=== PATIENT | male | born 1940 | race Caucasian/White ===

== ENCOUNTER 2017-07-29 07:59 | Outpatient (CLI) | payer MEDICARE, OTHER ==
[~2017-07-29] VITALS: Ht 172.7 cm; Wt 68.2 kg
--- NOTE | ~2017-07-29 | OP ---
PATIENT NAME: MALATHI NEWMAN MEDICAL RECORD: [id number] :38 LOCATION:D.CAT ADMISSION DATE: SURGEON: CAROL ANN CORONA MD DATE OF OPERATION: 07/29/2017 PROCEDURES: 1. PTCA stent left circumflex, ramus intermedius. 2. Left heart catheterization. 3. Selective coronary angiography. 4. Left ventriculogram. INDICATION: Angina and coronary artery disease. PROCEDURE IN DETAIL: After informed consent was obtained and after a detailed explanation of the risks, benefits as well as alternative therapies, the patient elected to proceed with angiogram and angioplasty. The right radial area was prepped and draped in normal sterile fashion. Right radial artery was cannulated via modified Seldinger technique with placement of 6-Kyrgyz sheath. All catheters exchanged through this sheath. FINDINGS: Left ventriculogram was performed in standard 30-degree CAMACHO view reveals good cardiac wall motion throughout all segments. Overall ejection fraction estimated at 60%. SELECTIVE CORONARY ANGIOGRAPHY: 1. Left main showed no significant angiographic disease. 2. Left anterior descending has multiple previously placed stents. These are widely patent with no significant restenosis. No disease elsewise throughout the LAD or its branches. 3. Left circumflex is very large, dominant. There is a large ramus intermedius and has 80% stenosis at the ostium. 4. Right coronary artery is small, nondominant. PTCA STENT OF THE RAMUS INTERMEDIUS: The stent used is a 3.5 x 8 mm Tyson. Result was 0% residual stenosis. OVERALL IMPRESSION: Successful percutaneous transluminal coronary angioplasty stent of the left circumflex, ramus intermedius going from 80% initial stenosis to 0% residual. TRANSINT:[id number] Voice Confirmation ID: [id number] DOCUMENT ID: [id number] CAROL ANN CORONA MD at 1140 CC: [id number] DICTATION DATE: 07/29/17 0934 DAIRY NUTRITION SPECIALIST: 07/29/17 1004 [facility] CLI 07/29/[address] [address]
--- NOTE | ~2017-07-29 | HEMODYNAMI ---
PATIENT:MALATHI NEWMAN MEDICAL RECORD: [id number] : 38 LOCATION:[facility] ADMISSION DATE: 07/29/17 Generatedon:07/29/20179:30 Patient name: MALATHI NEWMAN Patient #: [id number] SSN: DO B: 1940 Date of study: 07/29/2017 Page: Of Hemodynamic Procedure Report Patient Data Patient Demographics Procedure consent was obtained First Name: MALATHI Gender: Male Last Name: TRENT : 1940 Middle Initial: HIREN Age: 76 year(s) Patient #: [id number] Race: Unknown Additional ID: [id number] Contact details [address]: [address] [place] [address] State: [place] City: [place] Zip code: [address] Past Medical History Allergies: No known allergies Admission Admission Data Admission Date: 07/29/2017 Admission Time: 7:59 Admit Source: Other Lab Results Lab Result Date: 07/29/2017 Lab Result Time: 8:25 Biochemistry Name Units Result Min Max BUN mg/dl 17 --(---*)-- 7 18 Creatinine mg/dl 1.3 --(---*)-- 0.6 1.3 CBC Name Units Result Min Max Hematocrit % 41.4 -*(----)-- 42 54 Hemoglobin g/dl 14 --(*---)-- 13.5 17.5 Procedure Procedure Types Cath Procedure Diagnostic Procedure C [facility] w/Coronaries PCI Procedure Coronary Stent Coronary Stent Initial Procedure Description Procedure Date Procedure Date: 07/29/2017 Procedure Start Time: 9:17 Procedure End Time: 9:29 Procedure Staff Name Function Zander Lucero MD Performing Physician Pradip Jay RT Monitor Owen Mccormick RT Scrub Geo Yates RN Nurse Procedure Data Cath Procedure Fluoroscopy Diagnostic fluoroscopy Total fluoroscopy Time: 2.3 time: 2.3 min min Diagnostic fluoroscopy Total fluoroscopy dose: dose: 132.09 mGy 132.09 mGy Contrast Material Contrast Material Type Amount (ml) Isovue 300 90 Entry Location Entry Primary Successful Side Size Upsize Upsize Entry Closure Pimentel ccessful Closure Location (Fr) 1 (Fr) 2 (Fr) Remarks Device Remarks Radial Right 6 Fr Mechanical artery Short Compression Estimated blood loss: 10 ml Diagnostic catheters Device Type Used For End Catheter Placement DIAGNOSTIC [place] 110cm 5 Procedure Fr catheter ([id number]) Procedure Complications No complications Procedure Medications Medication Administration Route Dosage Oxygen NC 2 l/min Heparin Flush Bag added to field 2 bags (1000units/500ml NS) 0.9% NaCl I.V. 100 ml/hr Radial Cocktail added to field 1 syringe (Verapomil 2mg/Nitro 400mcg/Heparin 1500units) Fentanyl I.V. 50 mcg Versed I.V. 1 mg Fentanyl I.V. 50 mcg Versed I.V. 1 mg Radial Cocktail I.A. 1 syringe (Verapomil 2mg/Nitro 400mcg/Heparin 1500units) Heparin Bolus I.V. 4000 units Hemodynamics Rest Heart Rate: 63 (bpm) Snapshots Pre Cath Intra NCS Post Cath Vital Signs Time Heart Resp SPO2 etCO2 NIBP (mmHg) Rhythm Pain Sedation Rate (ipm) (%) (mmHg) Status Level (bpm) 9:03:06 63 16 96 0 146/78(109) NSR 0 (11) 10(A) , No pain 9:07:24 63 15 97 0 147/89(130) NSR 0 (11) 10(A) , No pain 9:11:40 65 16 96 0 139/83(127) NSR 0 (11) 10(A) , No pain 9:15:58 59 16 98 33.5 134/82(99) NSR 0 (11) 9(A) , No pain 9:20:10 67 16 96 35 111/69(92) NSR 0 (11) 9(A) , No pain 9:24:22 66 17 94 37.2 121/67(98) NSR 0 (11) 9(A) , No pain 9:28:36 62 16 96 32 124/72(95) NSR 0 (11) 9(A) , No pain Medications Time Medication Route Dose Verified Delivered Reason Notes Effectiveness by by 9:09:41 Oxygen NC 2 l/min Zander Guardado Per physician Jazmine Yates RN 9:09:50 Heparin Flush added 2 bags Zander Guardado used for Bag to Jazmine Yates RN procedure (1000units/500ml field NS) 9:09:58 0.9% NaCl I.V. 100 Zander Guardado Per physician ml/hr Jazmine Yates RN 9:10:08 Radial Cocktail added 1 Zander Guardado used for (Verapomil to syringe Jazmine Yates RN procedure 2mg/Nitro field 400mcg/Heparin 1500units) 9:14:31 Fentanyl I.V. 50 mcg Zander Guardado for sedation Jazmine Yates RN 9:14:37 Versed I.V. 1 mg Zander Guardado for sedation Jazmine Yates RN 9:16:20 Fentanyl I.V. 50 mcg Zander Guardado for sedation Jazmine Yates RN 9:16:25 Versed I.V. 1 mg Zander Guardado for sedation Jazmine Yates RN 9:17:50 Radial Cocktail I.A. 1 Zander Fermin for (Verapomil syringe Jazmine Lucero MD vasodilation 2mg/Nitro 400mcg/Heparin 1500units) 9:23:42 Heparin Bolus I.V. 4000 Zander Guardado for units Jazmine Yates RN anticoagulation Procedure Log Time Note 8:23:26 Informed consent obtained and on chart 8:23:31 Admit Source: Other 8:25:09 Diagnostic Cath status Elective 8:25:10 Time tracking: Regular hours 8:25:14 Plan of Care:Hemodynamics will remain stable., Cardiac rhythm will remain stable., Comfort level will be maintained., Respiratory function will remain adequate., Patient/ family verbilizes understanding of procedure., Procedure tolerated without complication., Recovers from procedure without complications.. 8:25:48 H&P Date Dictated: 07/21/2017 Within 30 days and on chart., H&P Addendum completed by physician on day of procedure. (MUST COMPLETE FOR ALL OUTPATIENTS). 8:40:14 Owen EATON(R) sent for patient. Start room use. 8:53:47 Patient received from Pre/Post Procedure Room to [facility] 3 Alert and oriented. Tansferred to table in Supine position. 8:53:48 Warm blankets applied, and andrzej hugger turned on for patient comfort. 8:53:48 Correct patient and procedure confirmed by team. 8:53:49 ECG and BP/O2 sat monitors applied to patient. 8:53:50 Pre-procedure instructions explained to patient. 8:53:51 Pre-op teaching completed and patient verbalized understanding. 8:53:52 Family in waiting room. 8:53:53 Patient NPO since Midnight. 8:53:59 Patient allergic to No known allergies 8:54:01 Is the patient allergic to Iodine/contrast media? No. 9:01:57 Vital chart was started 9:09:41 Oxygen 2 l/min NC was administered by Geo Yates RN; Per physician; 9:09:50 Heparin Flush Bag (1000units/500ml NS) 2 bags added to field was administered by Geo Yates RN; used for procedure; 9:09:58 0.9% NaCl 100 ml/hr I.V. was administered by Geo Yates RN; Per physician; 9:10:05 Baseline sample Acquired. 9:10:08 Radial Cocktail (Verapomil 2mg/Nitro 400mcg/Heparin 1500units) 1 syringe added to field was administered by Geo Yates RN; used for procedure; 9:10:08 Rhythm: sinus rhythm 9:10:09 Full Disclosure recording started 9:10:13 Is patient on blood thinner?Yes 9:10:15 ACC The patient was administered the following blood thiners within the last 24 hours: ACCPlavix 9:10:17 Patient diabetic? No. 9:10:19 Previous problem with sedation/anesthesia? No ? 9:10:20 Snore? Yes 9:10:21 Sleep apnea? No 9:10:21 Deviated septum? No 9:10:22 Opens mouth fully? Yes 9:10:23 Sticks out tongue? Yes 9:10:24 Airway obstruction? No ? 9:10:26 Dentures? Yes out 9:10:29 Modified Salty's test Ulnar < 7 seconds 9:10:30 Patient pain scale 0/10 ?. 9:10:41 IV patent on arrival in left wrist with 0.9% NaCl at [facility]. 9:12:22 Lab Result : Creatinine 1.3 mg/dl 9:12:22 Lab Result : BUN 17 mg/dl 9:12:22 Lab Result : Hemoglobin 14 g/dl 9:: Lab Result : Hematocrit 41.4 % 9:12:25 Lab results completed and on chart. 9:12:27 Right Radial & Right Groin area was prepped with chlora-prep and draped in sterile fashion 9:: Alarms reviewed by R. N. 9:12:28 Sharps counted by scrub and verified by R.N. 9:12:29 Use device set Radial Dx or PCI 9:12:30 ACIST Syringe (76535) opened to sterile field. 9:12:31 Medline Cath Pack ([id number]) opened to sterile field. 9:12:31 Bag Decanter (2002S) opened to sterile field. 9:12:33 ACIST Hand Control (99882) opened to sterile field. 9:12:33 ACIST Manifold (45350) opened to sterile field. 9:12:34 Tegaderm 4 x 4 (1626W) opened to sterile field. 9:12:37 SHEATH 6FR Slender ([id number]) opened to sterile field. 9:12:38 DIAGNOSTIC WIRE .035 260cm J wire (756285) opened to sterile field. 9:12:57 Physician arrived 9:12:58 --------ALL STOP TIME OUT------ 9:12:58 Final Timeout: patient, procedure, and site verified with staff and physician. All members of the team are in agreement. 9:13:14 Right Radial & Right Groin site verified by team. 9:13:19 Physical assessment completed. ASA score P 2 - A patient with mild systemic disease as per Zander Lucero MD. 9:13:23 Sedation plan: IV Moderate Sedation Medication:Versed, Fentanyl 9:14:31 Fentanyl 50 mcg I.V. was administered by Geo Yates RN; for sedation; 9:14:37 Versed 1 mg I.V. was administered by Geo Yates RN; for sedation; 9:16:20 Fentanyl 50 mcg I.V. was administered by Geo Yates RN; for sedation; 9:16:25 Versed 1 mg I.V. was administered by Geo Yates RN; for sedation; 9:16:42 Zero performed for pressure channel P1 9:17:07 Zero performed for pressure channel P1 9:17:18 Procedure started. 9:17:22 Local anesthetic to right radial artery with Lidocaine 2% by Zander Lucero MD.INITIAL ACCESS ONLY 9:17:31 A 6 Fr Short sheath was inserted into the Right Radial artery 9:17:49 A DIAGNOSTIC [place] 110cm 5 Fr catheter ([id number]) was advanced over the wire and used for Procedure. 9:17:50 Radial Cocktail (Verapomil 2mg/Nitro 400mcg/Heparin 1500units) 1 syringe I.A. was administered by Zander Lucero MD; for vasodilation; 9:18:32 LV gram done using CAMACHO 9:18:34 Injector settings: Ml/sec: 5, Volume: 15, 9:18:55 EF : 55 % 9:18:58 LCA angiography performed. 9:20:27 RCA angiography performed. 9:20:45 TR BAND Standard ([id number]) opened to sterile field. 9:20:47 TR BAND Large ([id number]) opened to sterile field. 9:21:51 CHOICE PT Extra Support 182cm wire ([id number]) opened to sterile field. 9:21:51 INFLATOR Merit BasixCompak (AF2647) opened to sterile field. 9:21:56 GUIDE 6FR XBLAD 3.5 catheter ([id number]) opened to sterile field. 9:22:48 Catheter removed. 9:22:53 6 Fr xblad 3.5 guide catheter was inserted over the wire 9:22:59 choice pt es wire advanced. 9:23:42 Heparin Bolus 4000 units I.V. was administered by Geo Yates RN; for anticoagulation; 9:24:50 Wire advanced across lesion. 9:26:04 Inflation Number: 1 A MELISA RX 3.5 x 08 stent ([id number]) was prepped and advanced across the Ramus. The stent was deployed at 13 JASON for 0:10 (min:sec). 9:26:22 Stent catheter was removed intact over wire. 9:26:22 Wire removed. 9:26:22 Guide catheter removed. 9:26:30 Sheath removed intact; hemostasis achieved with Mechanical Compression to the Right Radial artery. 9:26:32 Procedure ended.(Physican Out) 9:27:05 Fluoroscopy time 02.30 minutes. 9:27:12 Flurop Dose total: 132.09 9:27:12 Fluoroscopy dose: 132.09 mGy 9:27:15 Contrast amount:Isovue 300 90ml. 9:27:16 Sharps counted by scrub and verified by R.N. 9:27:19 TR band inflated with 12cc of air. 9:27:20 Insertion/operative site no bleeding no hematoma. 9:27:35 Post right radial artery:stable, soft, clean and dry 9:27:37 Post Procedure Pulses reassessed and unchanged 9:27:41 Post-procedure physical assessment completed. ASA score P 2 - A patient with mild systemic disease as per Zander Lucero MD. 9:27:43 Post procedure rhythm: unchanged. 9:27:46 Estimated blood loss: 10 ml 9:27:47 Post procedure instruction explained to patient.Patient verbalizes understanding. 9:27:47 Patient needs reinforcement of post procedure teaching. 9:28:11 Procedure type changed to Cath procedure, Diagnostic procedure, LHC, LHC w/Coronaries, PCI procedure, Coronary Stent, Coronary Stent Initial 9:28:58 Procedure and supply charges have been captured, reviewed, submitted and are correct. 9:29:00 Procedure Complication : No complications 9:29:02 Vital chart was stopped 9:29:02 See physician's report for complete and final results. 9:29:04 Report given to Pre/Post Procedure Room. 9:29:06 Patient transfered to Pre/Post Procedure Room with Stretcher. 9:29:08 Procedure ended. 9:29:08 Full Disclosure recording stopped 9:29:13 End room use (Document Last) Intervention Summary Intervention Notes Time ActionType Lesion and Equipment Used Action# Pressure Duration Attributes 9:26:04 Place stent Ramus MELISA RX 3.5 x 1 13 00:10 08 stent ([id number]) Device Usage Item Name Manufacture Quantity Catalog Number Hospital Part Current M inimal Lot# / Charge Number Stock Stock Serial# Code ACIST Syringe Acist 1 71974 350071 564373 168586 2 0 () Medical Systems Inc Medline Cath Cardinal 1 [id number] 321574 51504 117241 5 Pack Health ([id number]) Bag Decanter Microtek 1 280314 02452 063671 5 () Medical Inc. ACIST Hand Acist 1 60188 014255 673195 586655 5 Control Medical (57336) Systems Inc ACIST Manifold Acist 1 65372 520495 471761 803807 5 (77364) Medical Systems Inc Tegaderm 4 x 4 3M 1 1626W 019113 870939 986165 5 (1626W) SHEATH 6FR Terumo 1 [id number] 545285 078711 057202 4 0 Slender ([id number]) DIAGNOSTIC St Deniz 1 137826 819346 142638 210674 3 0 WIRE .035 260cm J wire (296711) DIAGNOSTIC Terumo 1 40-4813 510087 449051 263357 5 [place] 110cm 5 Fr catheter (829550) TR BAND Terumo 1 [id number] 874822 069695 662456 4 0 Standard ([id number]) TR BAND Large Terumo 1 [id number] 732783 959057 251756 4 0 ([id number]) CHOICE PT Odon 1 [id number] 001198 237072 734520 5 Extra Support Scientific 182cm wire ([id number]) INFLATOR Merit Merit 1 [id number] 173470 868056 190207 1 5 [facility] (LD4385) GUIDE 6FR Cardinal 1 [id number] 635815 843573 164178 1 0 XBLAD 3.5 Health catheter ([id number]) MELISA RX 3.5 x Medtronic 1 [id number] 202521 7673479 643563 5 [id number] 08 stent ([id number]) Signature Audit [place] Stage Time Signature Unsigned Intra-Procedure 07/29/2017 Pradip Jay 9:30:01 AM RT(R) Signatures Monitor : Pradip Jay RT Signature : Date : Time : [facility] [address] [place] [address]
[~2017-07-29 07:59] MED LIST: BACLOFEN10 MG PO; BAYER CHEWABLE81 MG PO; CRESTOR10 MG PO; LOTREL 10/20 CA1 CAP; PLAVIX75 MG PO; PROSCAR5 MG PO; SAW PALMETTO450 MG; TERAZOSIN HCL2 MG PO
[2017-07-29] MEDS ORDERED: ZANTAC150 MG (08:09)
[2017-07-29] MEDS ORDERED: FLOMAX0.4 MG PO (08:10)
[2017-07-29] MEDS ORDERED: LOTREL 10-40 M1 EACH PO (08:10)
[2017-07-29 08:20] VITALS: BP 149/76; Ht 172.7 cm; Wt 68.2 kg
[2017-07-29 08:52] LABS: BASOPHILS 0.5 % (0-2); EOSINOPHILS 4.1 % (0-7); HEMATOCRIT 41.4 % (42.0-54.0); LYMPHOCYTES 20.3 % (15-50); MCH 27.2 pg (26.0-34.0); MCHC 33.8 g/dL (31.0-37.0); MCV 80.5 fL (80.0-100.0); MEAN PLATELET VOLUME 9.8 fL (7.4-10.4); MONOCYTES 11.4 % (2-11); NEUTROPHILS 63.7 % (40-80); RBC 5.14 10x6/uL (4.20-6.10); RDW 14.4 % (11.5-14.5); WBC 4.4 10x3/uL (4.8-10.8)
[2017-07-29 08:55] LABS: PLATELET COUNT 152 10x3/uL (130-400)
[2017-07-29 09:01] LABS: ANION GAP 15.2 mmol/L (8-16); CARBON DIOXIDE 24.5 mmol/L (21.0-32.0); CREATININE - SERUM 1.3 mg/dL (0.6-1.3); POTASSIUM - SERUM 3.7 mmol/L (3.5-5.1)
== END 2017-07-29 13:51 | disposition home or self-care (01) ==
LOC: D.CATH 07:59
PROVIDERS: Internal Medicine Interventional Cardiology
DX: I25.119 Atherosclerotic heart disease of native coronary artery with unspecified angina pectoris (principal); R06.02 Shortness of breath; I10 Essential (primary) hypertension; Z01.812 Encounter for preprocedural laboratory examination
CPT/HCPCS: 93458; C9600